=== PATIENT | male | born 1960 | race Hispanic/Latino ===

== ENCOUNTER → 2020-05-20 | Outpatient (CLI) | payer OTHER ==
--- NOTE | 2020-05-20 15:06 | Diagnostic Imaging Report ---
MRI of the right forefoot without contrast. History: Foot pain. Osteomyelitis. Blisters. Diabetes. Pain worse with walking. Technique: Multiplanar multisequence MRI of the right forefoot without contrast Comparison: None Findings: Skin ulceration with adjacent skin thickening and abnormal soft tissue edema at the level of the distal fifth metatarsal. There is abnormal fluid signal intensity surrounding the distal fifth metatarsal with extension to the skin surface. There is abnormal bone marrow edema and cortical erosion involving the distal fifth metatarsal. The findings are consistent with osteomyelitis with adjacent small developing phlegmon. 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 Scattered degenerative change about the remaining visualized osseous structures. Prior amputation of the fourth toe with associated postsurgical change. Soft tissue edema about the foot most pronounced dorsally likely due to cellulitis. Diffuse muscle atrophy. Impression: Skin ulceration with adjacent skin thickening and abnormal soft tissue edema at the level of the distal fifth metatarsal. There is abnormal fluid signal intensity surrounding the distal fifth metatarsal with extension to the skin surface. There is abnormal bone marrow edema and cortical erosion involving the distal fifth metatarsal. The findings are consistent with osteomyelitis with adjacent small developing phlegmon. 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 Eduar Mckeon M.D. on 05/20/2020 3:03 PM
== END ==
LOC: MRI 13:42
PROVIDERS: ATTEND Podiatrist Foot & Ankle Surgery
DX: M86.071 Acute hematogenous osteomyelitis, right ankle and foot (principal)